=== PATIENT | female | born 1960 | race African-American/Black ===

== ENCOUNTER 2017-03-09 13:38 | Emergency (ER) | payer SELFPAY | END 2017-03-09 14:48 | disposition home or self-care (01) | LOC: ERS 13:38 | DX: J10.1 Influenza due to other identified influenza virus with other respiratory manifestations (principal); I10 Essential (primary) hypertension; M19.90 Unspecified osteoarthritis, unspecified site; F17.210 Nicotine dependence, cigarettes, uncomplicated | CPT/HCPCS: 99283 ==

== ENCOUNTER 2017-03-13 08:30 | Emergency (ER) | payer SELFPAY ==
[2017-03-13] MEDS ORDERED: Ondansetron ODT 4 MG TAB ONE (09:34)
== END 2017-03-13 09:45 | disposition home or self-care (01) ==
LOC: ERS 08:30
DX: J11.1 Influenza due to unidentified influenza virus with other respiratory manifestations (principal); I10 Essential (primary) hypertension; F17.210 Nicotine dependence, cigarettes, uncomplicated
CPT/HCPCS: 99284; Q0162

== ENCOUNTER 2018-02-15 00:45 | Emergency (ER) | payer SELFPAY ==
--- NOTE | 2018-02-15 08:37 | RAD ---
4 VIEWS RIGHT KNEE: Date: 02/15/18 COMPARISON: 12/25/15. HISTORY: Pain. FINDINGS: No joint effusion. There is stable mild to moderate degenerative change involving the medial compartment. No fracture or malalignment. IMPRESSION: Mild to moderate medial compartment degenerative change. POS: TAL
== END 2018-02-15 02:28 | disposition home or self-care (01) ==
LOC: ERS 00:45
DX: M25.561 Pain in right knee (principal); I10 Essential (primary) hypertension; J45.909 Unspecified asthma, uncomplicated; M19.90 Unspecified osteoarthritis, unspecified site; F17.210 Nicotine dependence, cigarettes, uncomplicated; Z71.6 Tobacco abuse counseling
CPT/HCPCS: 99406

== ENCOUNTER 2018-09-25 21:04 | Emergency (ER) | payer SELFPAY ==
[2018-09-25] MEDS ORDERED: Ibuprofen 800 MG TAB ONE (21:37)
[2018-09-25] MEDS ORDERED: Adacel (T-DAP) 0.5 ML SYRINGE ONE (21:37)
--- NOTE | 2018-09-25 21:43 | RAD ---
EXAM: XR Foot Lt 3 View STANDARD PROVIDED CLINICAL HISTORY: Pain FINDINGS: There is no evidence for fracture or other acute osseous abnormality. Alignment appears anatomic. Jenise nt spaces appear preserved. No evidence for radiopaque foreign body. IMPRESSION: No evidence for an acute osseous abnormality. If there is persistent clinical concern, conservative m anagement and follow-up imaging advised.
[2018-09-25] MEDS ORDERED: Bacitracin 1 PK ONE (22:09)
== END 2018-09-25 22:15 | disposition home or self-care (01) ==
LOC: ERS 21:04
DX: S91.342A Puncture wound with foreign body, left foot, initial encounter (principal); F17.210 Nicotine dependence, cigarettes, uncomplicated; I10 Essential (primary) hypertension; J45.909 Unspecified asthma, uncomplicated; Z79.51 Long term (current) use of inhaled steroids; W45.0XXA Nail entering through skin, initial encounter; Z79.899 Other long term (current) drug therapy
CPT/HCPCS: 90471; 90715

== ENCOUNTER 2021-02-27 16:02 | Inpatient (IN) | payer SELFPAY ==
[2021-02-27] MEDS ORDERED: cefTRIAXone\\ROCEPHIN 1 GM VIAL ONE (16:18)
[2021-02-27] MEDS ORDERED: methylPREDNISolone Sod Succ/PF 125 MG/2 ML VIAL ONE (16:18)
[2021-02-27 16:32] LABS: #Basophils 0.1 thou/uL (0.0-0.2); #Eosinphils 0.2 thou/uL (0.0-0.7); #Lymphocytes 1.9 thou/uL (1.20-3.40); #Monocytes 0.4 thou/uL (0.11-0.59); %Basophils 2.2 % (0.0-1.0); %Eosinophils 3.6 % (0.0-10.0); %Lymphocytes 41.7 % (21.0-51.0); %Monocytes 9.3 % (0.0-10.0); %Neutrophils 43.2 % (42.0-75.0); Hemoglobin 13.4 g/dL (12.0-16.0); Mean Corpuscular Hemoglobin 31.4 pg (27.0-31.0); Mean Corpuscular Volume 92.4 fL (78.0-98.0); Mean Platelet Volume 7.6 fL (7.4-10.4); Platelet Count 239 thou/uL (130-400); RBC Distribution Width 12.7 % (11.5-14.5); Red Blood Cell (RBC) Count 4.27 mill/uL (4.20-5.40); White Blood Cell (WBC) Count 4.6 thou/uL (4.8-10.8)
[2021-02-27 16:54] LABS: ALT (SGPT) 11 U/L (8-55); AST (SGOT) 16 U/L (5-34); Albumin 3.6 g/dL (3.5-5.0); Alkaline Phosphatase 66 U/L (40-110); Anion Gap 13 mmol/L (10-20); BUN (Urea Nitrogen) 9 mg/dL (9.8-20.1); Bilirubin, Total 0.3 mg/dL (0.2-1.2); Calc. Creatinine Clearance 0 mL/min (70-130); Calcium 8.6 mg/dL (7.8-10.44); Carbon Dioxide 22 mmol/L (22-29); Chloride 106 mmol/L (98-107); Globulin 3.4 g/dL (2.4-3.5); Glucose 108 mg/dL (70-105); Lipase 19 U/L (8-78); Potassium 3.5 mmol/L (3.5-5.1); Sodium 137 mmol/L (136-145)
[2021-02-27] MEDS ORDERED: Albuterol 200 PUFF (6.7GM INHALER) ONE (16:58)
[2021-02-27 18:05] LABS: Bacteria/HPF None Seen HPF (None Seen); Bilirubin Negative (Negative); Blood, Urine Trace (Negative); Calcium Oxalate Crystals 4+ HPF (None Seen); Clarity Clear (Clear); Glucose, Urine (Dipstick) Normal (Negative); Ketone, Urine Negative (Negative); Leukocyte Negative Leu/uL (Negative); Nitrite Negative (Negative); Protein, Urine (Dipstick) 10 mg/dL (Neg-Trace); RBC/HPF 0-3 HPF (0-3); Specific Gravity, Urine 1.026 (1.002-1.036); Squamous Epithelial 0-3 HPF (0-3); WBC/HPF 0-3 HPF (0-3); pH, Urine 5.5 (5.0-9.0)
[2021-02-27] MEDS ORDERED: Azithromycin 500 MG VIAL ONE (18:54)
[2021-02-27] MEDS ORDERED: Furosemide 40 MG/4 ML VIAL ONE (18:54)
[2021-02-27] MEDS ORDERED: Potassium Chloride 20 MEQ TAB PO SCH (20:00)
[2021-02-27] MEDS ORDERED: traMADol HCl 50 MG TAB PO PRN (20:44)
[2021-02-27] MEDS ORDERED: cefTRIAXone\\ROCEPHIN 2 GM in Sodium Chloride 0.9% 100 ML IVPB SCH (20:45)
[2021-02-27] MEDS ORDERED: Benzonatate 100 MG CAP PO PRN (20:45)
[2021-02-27] MEDS ORDERED: Ondansetron ODT 4 MG TAB PO PRN (20:46)
[2021-02-27] MEDS ORDERED: Ondansetron PF 4 MG/2 ML Vial IVP PRN (20:46)
[2021-02-27] MEDS ORDERED: Senokot S 8.6-50 MG TAB PO PRN (20:47)
[2021-02-27] MEDS ORDERED: guaiFENesin 200 MG TAB PO PRN (20:49)
[2021-02-27] MEDS ORDERED: Albuterol Sulfate 2.5 mg/3 ml Neb NEB PRN (20:50)
[2021-02-27] MEDS ORDERED: Dextrose 5% in Water 1,000 ML IV PRN (20:51)
[2021-02-27] MEDS ORDERED: HumaLOG 300 UNITS/3 ML VIAL SC PRN ×2 (20:51)
[2021-02-27] MEDS ORDERED: Dextrose 50% Abboject 50 ML SYRINGE SLOW IVP PRN (20:51)
[2021-02-27] MEDS ORDERED: Electrolyte Replacement Protocol 1 EACH FS SCH (21:45)
[2021-02-27] MEDS ORDERED: hydrALAZINE 20 MG/ML VIAL SLOW IVP PRN (21:49)
[2021-02-27] MEDS: Nicotine 14 MG PATCH TD SCH (22:36)
[2021-02-27] MEDS: cefTRIAXone\\ROCEPHIN 1 GM in Sodium Chloride 0.9% 100 ML IVPB SCH (22:37)
[2021-02-28] MEDS ORDERED: Potassium Chloride 20 MEQ in Premix Bag 1 BAG IVPB SCH (01:00)
[2021-02-28] MEDS ORDERED: Magnesium 2 GM/50 ML 2 GM in Premix Bag 1 BAG IVPB SCH (01:00)
[2021-02-28 03:30] LABS: Hemoglobin 13.3 g/dL (12.0-16.0); Mean Corpuscular HGB CONC 33.4 g/dL (32.0-36.0); Mean Corpuscular Hemoglobin 30.8 pg (27.0-31.0); Mean Corpuscular Volume 92.2 fL (78.0-98.0); Mean Platelet Volume 7.6 fL (7.4-10.4); Platelet Count 270 thou/uL (130-400); RBC Distribution Width 12.7 % (11.5-14.5); Red Blood Cell (RBC) Count 4.32 mill/uL (4.20-5.40); White Blood Cell (WBC) Count 4.5 thou/uL (4.8-10.8)
[2021-02-28 03:44] LABS: Hemoglobin A1c 5.5 % (4.0-6.0)
[2021-02-28 03:47] LABS: Anion Gap 11 mmol/L (10-20); BUN (Urea Nitrogen) 7 mg/dL (9.8-20.1); Calc. Creatinine Clearance 122 mL/min (70-130); Calcium 8.8 mg/dL (7.8-10.44); Carbon Dioxide 26 mmol/L (22-29); Chloride 106 mmol/L (98-107); Glucose 148 mg/dL (70-105); Potassium 3.7 mmol/L (3.5-5.1); Sodium 139 mmol/L (136-145)
[2021-02-28 04:33] LABS: Band 5 % (5-11); Lymphocytes 15 % (21-51); MDiff Complete? YES; Monocytes 3 % (0-10); Neutrophil 77 % (42-75)
[2021-02-28] MEDS ORDERED: methylPREDNISolone Sod Succ 40 MG VIAL IVP SCH (06:00)
[2021-02-28] MEDS: Furosemide 40 MG/4 ML VIAL SLOW IVP SCH ×2 (06:25→15:52)
[2021-02-28] MEDS ORDERED: predniSONE 20 MG TAB PO SCH (08:00)
[2021-02-28] MEDS ORDERED: metFORMIN 500 MG TAB PO SCH (08:00)
[2021-02-28] MEDS: methylPREDNISolone Sod Succ 40 MG VIAL IVP SCH (09:16)
[2021-02-28] MEDS: Enoxaparin Sodium 40 MG/0.4 ML SYRINGE SC SCH (09:16)
[2021-02-28] MEDS: Metoprolol Tartrate 25 MG TAB PO SCH ×2 (09:16→20:12)
[2021-02-28] MEDS: Azithromycin 250 MG TAB PO SCH (09:16)
[2021-02-28] MEDS: metFORMIN 500 MG TAB PO SCH (15:52)
[2021-02-28] MEDS: Nicotine 14 MG PATCH TD SCH (20:12)
[2021-02-28] MEDS: cefTRIAXone\\ROCEPHIN 1 GM in Sodium Chloride 0.9% 100 ML IVPB SCH (20:12)
[2021-03-01] MEDS: Furosemide 40 MG/4 ML VIAL SLOW IVP SCH ×2 (05:18→14:46)
[2021-03-01] MEDS ORDERED: Lisinopril/Hydrochlorothiazide 10 mg/12.5 mg Tablet PO SCH (09:00)
[2021-03-01 09:09] VITALS: BMI 34.5
[2021-03-01] MEDS: metFORMIN 500 MG TAB PO SCH (09:31)
[2021-03-01] MEDS: Azithromycin 250 MG TAB PO SCH (09:32)
[2021-03-01] MEDS: Enoxaparin Sodium 40 MG/0.4 ML SYRINGE SC SCH (09:32)
[2021-03-01] MEDS: Metoprolol Tartrate 25 MG TAB PO SCH (09:32)
[2021-03-01] MEDS: methylPREDNISolone Sod Succ 40 MG VIAL IVP SCH (09:33)
[2021-03-01 12:11] VITALS: BP 130/75; TEMP 97.6
== END 2021-03-01 15:34 | disposition home or self-care (01) | DRG 871 ==
LOC: ERS 16:02 → 2NO 18:50 → OBSVTOIN 02-28 16:49
PROVIDERS: ADMIT Internal Medicine; ATTEND Internal Medicine
DX: A41.9 Sepsis, unspecified organism (principal); J96.01 Acute respiratory failure with hypoxia; J18.9 Pneumonia, unspecified organism; I50.33 Acute on chronic diastolic (congestive) heart failure; R04.2 Hemoptysis; J43.9 Emphysema, unspecified; F17.210 Nicotine dependence, cigarettes, uncomplicated; E66.9 Obesity, unspecified; E11.9 Type 2 diabetes mellitus without complications; I11.0 Hypertensive heart disease with heart failure; I16.0 Hypertensive urgency; J20.9 Acute bronchitis, unspecified; M19.90 Unspecified osteoarthritis, unspecified site; I08.1 Rheumatic disorders of both mitral and tricuspid valves; Z68.34 Body mass index [BMI] 34.0-34.9, adult; Z88.6 Allergy status to analgesic agent; Z88.8 Allergy status to other drugs, medicaments and biological substances; Z79.899 Other long term (current) drug therapy; Z79.84 Long term (current) use of oral hypoglycemic drugs; Z80.0 Family history of malignant neoplasm of digestive organs; Z82.49 Family history of ischemic heart disease and other diseases of the circulatory system; Z88.0 Allergy status to penicillin; Z71.6 Tobacco abuse counseling
CPT/HCPCS: 36415; 36416; 71045; 71250; 80048; 80053; 81003; 81015; 83036; 83605; 83690; 83735; 83880; 84443; 85025; 87040; 87086; 93005; 93306; 94640; 94664; 96365; 96366; 96367; 96368; 96372; 96375; 96376; G0378; J0456; J0696; J1650; J1940; J2920; J2930; J3475; J3490; J7620

== ENCOUNTER 2022-11-07 02:58 | Observation (INO) | payer SELFPAY ==
[2022-11-07] MEDS ORDERED: Oxymetazoline HCl 0.05% (30 ML BOT) ONE (03:12)
[2022-11-07] MEDS ORDERED: Tranexamic Acid 1,000 MG/10 ML VIAL ONE (04:32)
[2022-11-07 05:01] LABS: Hematocrit 41.3 % (36.0-47.0); Hemoglobin 13.3 g/dL (12.0-16.0); Mean Corpuscular HGB CONC 32.2 g/dL (32.0-36.0); Mean Corpuscular Volume 90.2 fl (78.0-98.0); Red Blood Cell (RBC) Count 4.58 mill/uL (4.20-5.40); White Blood Cell (WBC) Count 7.5 10x3/uL (4.8-10.8)
[2022-11-07 05:02] LABS: #Eosinphils 0.2 thou/uL (0.0-0.7); #Monocytes 0.5 thou/uL (0.11-0.59); #Neutrophils 4.1 thou/uL (1.40-6.50); %Basophils 0.4 % (0.0-1.0); %Eosinophils 3.1 % (0.0-10.0); %Lymphocytes 35.7 % (21.0-51.0); %Monocytes 6.1 % (0.0-10.0); %Neutrophils 54.4 % (42.0-75.0); Mean Platelet Volume 10.3 fL (7.4-10.4); Platelet Count 325 10x3/uL (130-400); RBC Distribution Width 13.6 % (11.5-14.5)
[2022-11-07 05:16] LABS: INR-International Normal Ratio 0.9; Prothrombin Time 12.3 sec (12.0-14.7)
[2022-11-07 05:28] LABS: ALT (SGPT) 8 U/L (8-55); AST (SGOT) 13 U/L (5-34); Albumin 3.8 g/dL (3.4-4.8); Alkaline Phosphatase 75 U/L (40-110); Anion Gap 10 mmol/L (10-20); BUN (Urea Nitrogen) 10 mg/dL (9.8-20.1); Bilirubin, Total 0.3 mg/dL (0.2-1.2); Calc. Creatinine Clearance 0 mL/min (70-130); Calcium 9.1 mg/dL (7.8-10.44); Carbon Dioxide 27 mmol/L (23-31); Chloride 105 mmol/L (98-107); Estimated GFR 98; Glucose 106 mg/dL (80-115); Potassium 3.1 mmol/L (3.5-5.1); Protein, Total 6.8 g/dL (5.8-8.1); Sodium 139 mmol/L (136-145)
[2022-11-07] MEDS ORDERED: Potassium Chloride 20 MEQ/100 ML PREMIX BAG ONE (05:49)
[2022-11-07] MEDS ORDERED: Potassium Chloride 20 MEQ TAB ONE (06:17)
[2022-11-07] MEDS ORDERED: Electrolyte Replacement Protocol 1 EACH FS SCH (06:45)
[2022-11-07] MEDS ORDERED: Potassium Chloride 20 MEQ TAB PO SCH (07:15)
[2022-11-07 07:42] VITALS: BMI 34.3
[2022-11-07] MEDS ORDERED: Ondansetron PF 4 MG/2 ML Vial IVP PRN (07:43)
[2022-11-07] MEDS ORDERED: Ondansetron ODT 4 MG TAB PO PRN (07:43)
[2022-11-07] MEDS ORDERED: Sodium Chloride 0.9% 1,000 ML IV SCH (07:45)
[2022-11-07 07:59] LABS: Magnesium 1.9 mg/dL (1.6-2.6)
[2022-11-07] MEDS ORDERED: Magnesium 2 GM/50 ML(in water) 2 GM in Premix Bag 1 BAG IVPB SCH (09:00)
[2022-11-07] MEDS ORDERED: Dextrose 50% Abboject 50 ML SYRINGE SLOW IVP PRN (09:48)
[2022-11-07] MEDS ORDERED: Glucagon 1 MG/ML KIT IM PRN (09:48)
[2022-11-07] MEDS ORDERED: HumaLOG 300 UNITS/3 ML VIAL SC PRN ×2 (09:48)
[2022-11-07] MEDS ORDERED: Dextrose 5% in Water 1,000 ML IV PRN (09:48)
[2022-11-07] MEDS: Nicotine 14 MG PATCH TD SCH (10:33)
[2022-11-07] MEDS ORDERED: Oxymetazoline HCl 0.05% (30 ML BOT) NS PRN (14:08)
[2022-11-07] MEDS ORDERED: diphenhydrAMINE 25 MG CAP PO PRN (14:09)
[2022-11-07] MEDS: Acetaminophen 325 MG TAB PO PRN ×2 (15:19→20:24)
[2022-11-07] MEDS ORDERED: Ipratropium Bromide 2.5 ml Neb NEB PRN (17:35)
[2022-11-07] MEDS ORDERED: Albuterol 200 PUFF (6.7GM INHALER) INH PRN (17:44)
[2022-11-07] MEDS: Cefdinir 300 MG CAP PO SCH (20:24)
[2022-11-07] MEDS: Metoprolol Tartrate 25 MG TAB PO SCH (20:24)
[2022-11-08 06:54] VITALS: TEMP 98.2
[2022-11-08 07:52] VITALS: BP 163/90
[2022-11-08 07:58] LABS: #Eosinphils 0.2 thou/uL (0.0-0.7); #Monocytes 0.5 thou/uL (0.11-0.59); %Basophils 0.3 % (0.0-1.0); %Eosinophils 2.4 % (0.0-10.0); %Lymphocytes 33.9 % (21.0-51.0); %Monocytes 6.9 % (0.0-10.0); %Neutrophils 56.2 % (42.0-75.0); Hematocrit 36.5 % (36.0-47.0); Hemoglobin 11.9 g/dL (12.0-16.0); Mean Corpuscular HGB CONC 32.6 g/dL (32.0-36.0); Mean Corpuscular Hemoglobin 29.2 pg (27.0-31.0); Mean Corpuscular Volume 89.7 fl (78.0-98.0); Mean Platelet Volume 10.6 fL (7.4-10.4); Platelet Count 280 10x3/uL (130-400); RBC Distribution Width 13.7 % (11.5-14.5); Red Blood Cell (RBC) Count 4.07 mill/uL (4.20-5.40); White Blood Cell (WBC) Count 7.1 10x3/uL (4.8-10.8)
[2022-11-08] MEDS ORDERED: metFORMIN 500 MG TAB PO SCH (08:00)
[2022-11-08] MEDS: Cefdinir 300 MG CAP PO SCH (08:21)
[2022-11-08] MEDS: Metoprolol Tartrate 25 MG TAB PO SCH (08:21)
[2022-11-08 08:23] LABS: Anion Gap 9 mmol/L (10-20); BUN (Urea Nitrogen) 10 mg/dL (9.8-20.1); Calc. Creatinine Clearance 112 mL/min (70-130); Calcium 8.7 mg/dL (7.8-10.44); Carbon Dioxide 27 mmol/L (23-31); Chloride 107 mmol/L (98-107); Estimated GFR 98; Glucose 99 mg/dL (80-115); Potassium 4.1 mmol/L (3.5-5.1); Sodium 139 mmol/L (136-145)
[2022-11-08] MEDS: Nicotine 14 MG PATCH TD SCH (08:23)
[2022-11-08] MEDS ORDERED: Lisinopril/Hydrochlorothiazide 10 mg/12.5 mg Tablet PO SCH (09:00)
== END 2022-11-08 11:49 | disposition home or self-care (01) ==
LOC: ERS 02:58 → ERHOLD 05:39 → INTOOBSV 05:39 → T4-B 07:28
PROVIDERS: ADMIT Student in an Organized Health Care Education/Training Program; ATTEND Internal Medicine
DX: R04.0 Epistaxis (principal); E87.6 Hypokalemia; J45.909 Unspecified asthma, uncomplicated; I10 Essential (primary) hypertension; E11.69 Type 2 diabetes mellitus with other specified complication; E66.01 Morbid (severe) obesity due to excess calories; Z68.34 Body mass index [BMI] 34.0-34.9, adult; F17.210 Nicotine dependence, cigarettes, uncomplicated; Z88.0 Allergy status to penicillin; Z88.8 Allergy status to other drugs, medicaments and biological substances; Z79.84 Long term (current) use of oral hypoglycemic drugs; Z79.899 Other long term (current) drug therapy
CPT/HCPCS: 30903; 36415; 36416; 80048; 80053; 83735; 85025; 85610; 85730; 96365; 96375; G0378; J3475; J3480; J7050

== ENCOUNTER 2024-02-20 09:27 | Inpatient (IN) | payer OTHER, SELFPAY ==
[2024-02-20 09:57] LABS: #Basophils Less than 0.03 10x3/uL (0.0-0.2); %Basophils 0.2 % (0.0-1.0); %Eosinophils 1.5 % (0.0-10.0); %Monocytes 5.5 % (0.0-10.0); %Neutrophils 56.6 % (42.0-75.0); Hematocrit 35.2 % (36.0-47.0); Hemoglobin 11.4 g/dL (12.0-16.0); Mean Corpuscular HGB CONC 32.4 g/dL (32.0-36.0); Mean Corpuscular Hemoglobin 29.2 pg (27.0-31.0); Mean Corpuscular Volume 90.3 fL (78.0-98.0); Mean Platelet Volume 9.9 fL (7.4-10.4); Platelet Count 278 10x3/uL (130-400); RBC Distribution Width 13.9 % (11.5-14.5)
[2024-02-20] MEDS ORDERED: Morphine 4 MG/ML VIAL ONE (10:14)
[2024-02-20] MEDS ORDERED: Nitroglycerin 2% Ointment 1 INCH/1 GM Packet ONE (10:14)
[2024-02-20] MEDS ORDERED: Ondansetron PF 4 MG/2 ML Vial ONE (10:14)
[2024-02-20 10:15] LABS: ALT (SGPT) 35 U/L (8-55); AST (SGOT) 27 U/L (5-34); Albumin 3.2 g/dL (3.4-4.8); Alkaline Phosphatase 72 U/L (40-110); Anion Gap 13 mmol/L (10-20); BUN (Urea Nitrogen) 8 mg/dL (9.8-20.1); Bilirubin, Total 0.5 mg/dL (0.2-1.2); Calc. Creatinine Clearance 0 mL/min (70-130); Calcium 8.5 mg/dL (7.8-10.44); Carbon Dioxide 21 mmol/L (23-31); Chloride 110 mmol/L (98-107); Estimated GFR 98; Glucose 99 mg/dL (80-115); Lipase 8 U/L (8-78); Potassium 3.9 mmol/L (3.5-5.1); Protein, Total 6.2 g/dL (5.8-8.1); Sodium 140 mmol/L (136-145)
[2024-02-20] MEDS ORDERED: methylPREDNISolone Sod Succ/PF 125 MG/2 ML VIAL ONE (10:15)
[2024-02-20] MEDS ORDERED: Aspirin Chewable 81 MG TAB ONE (10:15)
[2024-02-20 10:17] LABS: INR-International Normal Ratio 1.1; Prothrombin Time 13.7 sec (12.0-14.7)
[2024-02-20 10:18] LABS: PTT 45.5 sec (22.9-36.1)
[2024-02-20 10:20] LABS: Troponin I 0.019 ng/mL (< 0.028)
[2024-02-20] MEDS ORDERED: Furosemide 40 MG (4 mL) VIAL ONE (10:34)
[2024-02-20] MEDS ORDERED: Ipratropium/Albuterol 3 ML NEB ONE ×2 (11:00→13:22)
[2024-02-20 11:59] LABS: Bacteria/HPF None Seen HPF (None Seen); Bilirubin Negative (Negative); Blood, Urine Negative (Negative); CAUTI Indications for Culture Dysuria,urgency,freq; Clarity Clear (Clear); Glucose, Urine (Dipstick) Normal (Negative); Ketone, Urine Negative (Negative); Leukocyte Negative Leu/uL (Negative); Nitrite Negative (Negative); Protein, Urine (Dipstick) Negative (Neg-Trace); RBC/HPF 0-3 HPF (0-3); Specific Gravity, Urine 1.008 (1.002-1.036); Squamous Epithelial None Seen HPF (0-3); Urobilinogen Normal mg/dL (Less than 2); WBC/HPF 0-3 HPF (0-3)
[2024-02-20 12:04] LABS: Urine Culture Reflex No No
[2024-02-20] MEDS ORDERED: Ondansetron PF 4 MG/2 ML Vial IVP PRN (12:04)
[2024-02-20] MEDS ORDERED: Albuterol 2.5 MG (3 mL) NEB NEB PRN (12:04)
[2024-02-20] MEDS ORDERED: Famotidine 20 MG TAB PO PRN (12:04)
[2024-02-20] MEDS ORDERED: Ondansetron ODT 4 MG TAB PO PRN (12:04)
[2024-02-20 12:45] LABS: Troponin I 0.022 ng/mL (< 0.028)
[2024-02-20] MEDS ORDERED: LevoFLOXacin 500 mg/D5W 500 MG in Premix 1 BAG IVPB SCH (13:00)
[2024-02-20] MEDS: Ipratropium/Albuterol 3 ML NEB NEB SCH (13:23)
[2024-02-20] MEDS: Furosemide 40 MG (4 mL) VIAL SLOW IVP SCH (16:47)
[2024-02-20] MEDS: Metoprolol Tartrate 25 MG TAB PO SCH ×2 (16:47→22:03)
[2024-02-20 18:51] LABS: Troponin I Less than 0.010 ng/mL (< 0.028)
[2024-02-20] MEDS: Ketorolac Tromethamine 30 MG (1 mL) VIAL IVP SCH (22:31)
[2024-02-20 23:24] VITALS: BMI 37.9
[2024-02-21 05:37] LABS: #Basophils Less than 0.03 10x3/uL (0.0-0.2); #Eosinophils Less than 0.03 10x3/uL (0.0-0.7); %Lymphocytes 20.6 % (21.0-51.0); %Monocytes 6.7 % (0.0-10.0); %Neutrophils 72.3 % (42.0-75.0); Hematocrit 36.2 % (36.0-47.0); Hemoglobin 11.6 g/dL (12.0-16.0); Mean Corpuscular Hemoglobin 28.8 pg (27.0-31.0); Mean Corpuscular Volume 89.8 fL (78.0-98.0); Mean Platelet Volume 10.3 fL (7.4-10.4); Platelet Count 305 10x3/uL (130-400); RBC Distribution Width 13.9 % (11.5-14.5); Red Blood Cell (RBC) Count 4.03 mill/uL (4.20-5.40)
[2024-02-21 05:53] LABS: Anion Gap 13 mmol/L (10-20); BUN (Urea Nitrogen) 16 mg/dL (9.8-20.1); Calc. Creatinine Clearance 107 mL/min (70-130); Calcium 8.9 mg/dL (7.8-10.44); Carbon Dioxide 24 mmol/L (23-31); Chloride 107 mmol/L (98-107); Estimated GFR 87; Glucose 111 mg/dL (80-115); Potassium 4.1 mmol/L (3.5-5.1); Sodium 140 mmol/L (136-145)
[2024-02-21] MEDS: Hydrochlorothiazide 25 MG TAB PO SCH (08:40)
[2024-02-21] MEDS: predniSONE 20 MG TAB PO SCH (08:41)
[2024-02-21] MEDS: Aspirin 81 mg Enteric Coated Tablet PO SCH (08:41)
[2024-02-21] MEDS: Lisinopril 10 MG TAB PO SCH (08:41)
[2024-02-21] MEDS: Metolazone 5 MG TAB PO SCH (12:21)
[2024-02-22 04:19] LABS: #Basophils Less than 0.03 10x3/uL (0.0-0.2); #Eosinophils Less than 0.03 10x3/uL (0.0-0.7); %Basophils 0.1 % (0.0-1.0); %Eosinophils 0.2 % (0.0-10.0); %Lymphocytes 30.5 % (21.0-51.0); %Neutrophils 62.8 % (42.0-75.0); Hemoglobin 12.6 g/dL (12.0-16.0); Mean Corpuscular HGB CONC 33.2 g/dL (32.0-36.0); Mean Corpuscular Hemoglobin 29.2 pg (27.0-31.0); Mean Platelet Volume 10.1 fL (7.4-10.4); Platelet Count 334 10x3/uL (130-400); RBC Distribution Width 13.8 % (11.5-14.5); Red Blood Cell (RBC) Count 4.32 mill/uL (4.20-5.40)
[2024-02-22 04:41] LABS: Anion Gap 11 mmol/L (10-20); BUN (Urea Nitrogen) 20 mg/dL (9.8-20.1); Calc. Creatinine Clearance 120 mL/min (70-130); Calcium 9.4 mg/dL (7.8-10.44); Carbon Dioxide 31 mmol/L (23-31); Cardiac Risk 3.9 (Less than 4.5); Chloride 99 mmol/L (98-107); Cholesterol 168 mg/dl (< 200 Desired); Estimated GFR 97; Glucose 104 mg/dL (80-115); HDL Cholesterol 43 mg/dL (>60 Neg Risk); LDL Cholesterol, Calculated 111 mg/dL; Potassium 3.5 mmol/L (3.5-5.1); Sodium 137 mmol/L (136-145); Triglycerides 68 mg/dL (Less than 150)
[2024-02-22] MEDS ORDERED: Communication Order-Pharmacy FS SCH (06:00)
[2024-02-22] MEDS ORDERED: Midazolam HCl 2 mg/2 ml Vial ONE (06:40)
[2024-02-22] MEDS ORDERED: Heparin 10,000 UNITS/ 10 ML VIAL ONE (06:40)
[2024-02-22] MEDS ORDERED: Verapamil 5 MG/2 ML VIAL ONE (06:40)
[2024-02-22] MEDS ORDERED: Nitroglycerin 50 MG/250 ML BOT 250 ML ONE (06:41)
[2024-02-22] MEDS ORDERED: fentaNYL 50 mcg/mL 1 mL Vial ONE (08:31)
[2024-02-22] MEDS ORDERED: Metoprolol Tartrate 5 MG (5 mL) VIAL ONE (08:56)
[2024-02-22] MEDS ORDERED: Sodium Chloride 0.9% 200 ML IV PRN (09:35)
[2024-02-22] MEDS ORDERED: Nitroglycerin 0.4 MG TAB (25 Tab Bottle) SL PRN (09:35)
[2024-02-22] MEDS ORDERED: Acetaminophen/Codeine 30-300mg Tablet PO PRN ×2 (09:35)
[2024-02-22] MEDS ORDERED: Iopamidol 370 76% 100 ML VIAL ONE (10:24)
[2024-02-22] MEDS: Atorvastatin Calcium 40 MG TAB PO SCH ×2 (11:19→21:28)
[2024-02-22] MEDS: Dapagliflozin Propanediol 10 MG TAB PO SCH (11:19)
[2024-02-22] MEDS: Furosemide 20 MG TAB PO SCH (16:02)
[2024-02-22] MEDS: Sacubitril 24MG/Valsartan 26 MG TAB PO SCH (21:29)
[2024-02-23 06:37] LABS: Anion Gap 14 mmol/L (10-20); BUN (Urea Nitrogen) 20 mg/dL (9.8-20.1); Calc. Creatinine Clearance 100 mL/min (70-130); Calcium 8.9 mg/dL (7.8-10.44); Carbon Dioxide 30 mmol/L (23-31); Chloride 96 mmol/L (98-107); Estimated GFR 84; Glucose 100 mg/dL (80-115); Potassium 3.3 mmol/L (3.5-5.1); Sodium 137 mmol/L (136-145)
[2024-02-23 06:39] LABS: #Basophils Less than 0.03 10x3/uL (0.0-0.2); %Basophils 0.2 % (0.0-1.0); %Eosinophils 0.5 % (0.0-10.0); %Lymphocytes 46.2 % (21.0-51.0); %Monocytes 3.1 % (0.0-10.0); %Neutrophils 49.6 % (42.0-75.0); Hematocrit 51.1 % (36.0-47.0); Hemoglobin 16.5 g/dL (12.0-16.0); Mean Corpuscular HGB CONC 32.3 g/dL (32.0-36.0); Mean Corpuscular Hemoglobin 28.7 pg (27.0-31.0); Mean Corpuscular Volume 88.9 fL (78.0-98.0); Mean Platelet Volume 9.8 fL (7.4-10.4); Platelet Count 413 10x3/uL (130-400); RBC Distribution Width 13.7 % (11.5-14.5); Red Blood Cell (RBC) Count 5.75 mill/uL (4.20-5.40)
[2024-02-23] MEDS: Dapagliflozin Propanediol 10 MG TAB PO SCH (09:52)
[2024-02-23] MEDS: predniSONE 5 MG TAB PO SCH (09:52)
[2024-02-24 06:03] LABS: #Basophils 0.03 10x3/uL (0.0-0.2); %Basophils 0.3 % (0.0-1.0); %Eosinophils 0.8 % (0.0-10.0); %Lymphocytes 52.2 % (21.0-51.0); %Monocytes 7.7 % (0.0-10.0); %Neutrophils 38.7 % (42.0-75.0); Hematocrit 50.5 % (36.0-47.0); Hemoglobin 16.7 g/dL (12.0-16.0); Mean Corpuscular HGB CONC 33.1 g/dL (32.0-36.0); Mean Corpuscular Hemoglobin 28.6 pg (27.0-31.0); Mean Corpuscular Volume 86.5 fL (78.0-98.0); Mean Platelet Volume 10.4 fL (7.4-10.4); Platelet Count 402 10x3/uL (130-400); RBC Distribution Width 13.6 % (11.5-14.5); Red Blood Cell (RBC) Count 5.84 mill/uL (4.20-5.40)
[2024-02-24 06:15] LABS: Anion Gap 14 mmol/L (10-20); BUN (Urea Nitrogen) 27 mg/dL (9.8-20.1); Calc. Creatinine Clearance 86 mL/min (70-130); Carbon Dioxide 29 mmol/L (23-31); Chloride 98 mmol/L (98-107); Potassium 3.5 mmol/L (3.5-5.1); Sodium 137 mmol/L (136-145)
[2024-02-24 06:16] LABS: ALT (SGPT) 38 U/L (8-55); AST (SGOT) 21 U/L (5-34); Albumin 3.4 g/dL (3.4-4.8); Alkaline Phosphatase 75 U/L (40-110); Bilirubin, Total 0.5 mg/dL (0.2-1.2); Calcium 9.1 mg/dL (7.8-10.44); Estimated GFR 70; Globulin 3.8 g/dL (2.4-3.5); Glucose 95 mg/dL (80-115); Magnesium 2.3 mg/dL (1.6-2.6); Protein, Total 7.2 g/dL (5.8-8.1)
[2024-02-24 09:15] VITALS: TEMP 97.6
[2024-02-24 13:02] VITALS: BP 114/77
== END 2024-02-24 14:00 | disposition home or self-care (01) | DRG 286 ==
LOC: ERS 09:27 → ERHOLD 11:41 → 2NO 21:50
PROVIDERS: ADMIT Family Medicine; ATTEND Internal Medicine
PROC: 4A023N7 Measurement of Cardiac Sampling and Pressure, Left Heart, Percutaneous Approach (ICD-10-PCS; principal; 2024-02-22)
PROC: B2111ZZ Fluoroscopy of Multiple Coronary Arteries using Low Osmolar Contrast (ICD-10-PCS; 2024-02-22)
PROC: B2151ZZ Fluoroscopy of Left Heart using Low Osmolar Contrast (ICD-10-PCS; 2024-02-22)
DX: I11.0 Hypertensive heart disease with heart failure (principal); I50.23 Acute on chronic systolic (congestive) heart failure; J44.1 Chronic obstructive pulmonary disease with (acute) exacerbation; E11.9 Type 2 diabetes mellitus without complications; E66.01 Morbid (severe) obesity due to excess calories; F17.210 Nicotine dependence, cigarettes, uncomplicated; I25.10 Atherosclerotic heart disease of native coronary artery without angina pectoris; E78.00 Pure hypercholesterolemia, unspecified; I42.8 Other cardiomyopathies; I34.0 Nonrheumatic mitral (valve) insufficiency; I07.1 Rheumatic tricuspid insufficiency; I95.9 Hypotension, unspecified; Z88.0 Allergy status to penicillin; Z88.5 Allergy status to narcotic agent; Z98.891 History of uterine scar from previous surgery; Z88.8 Allergy status to other drugs, medicaments and biological substances; Z71.6 Tobacco abuse counseling; Z68.35 Body mass index [BMI] 35.0-35.9, adult
CPT/HCPCS: 36415; 71045; 80048; 80053; 80061; 81001; 83690; 83735; 83880; 84443; 84484; 85025; 85610; 85730; 87070; 87205; 87428; 93005; 93306; 93458; 93798; 96374; 96375; 99152; 99153; C1769; C1887; C1894; J1644; J1885; J1940; J2250; J2272; J2405; J2919; J3010; J7512; J7620; Q9967

== ENCOUNTER 2024-12-10 10:27 | Emergency (ER) | payer OTHER ==
[2024-12-10] MEDS ORDERED: Iopamidol-370 76% 500 ML MDV (1 ML CHARGE) ONE (13:03)
[2024-12-10 13:42] LABS: #Basophils Less than 0.03 10x3/uL (0.0-0.2); #Eosinophils 0.14 10x3/uL (0.0-0.7); #Monocytes 0.47 10x3/uL (0.11-0.59); #Neutrophils 3.56 10x3/uL (1.40-6.50); %Basophils 0.1 % (0.0-1.0); %Eosinophils 2.0 % (0.0-10.0); %Lymphocytes 39.0 % (21.0-51.0); %Monocytes 6.8 % (0.0-10.0); %Neutrophils 51.8 % (42.0-75.0); Hematocrit 39.1 % (36.0-47.0); Hemoglobin 12.3 g/dL (12.0-16.0); Mean Corpuscular Hemoglobin 28.5 pg (27.0-31.0); Mean Corpuscular Volume 90.5 fL (78.0-98.0); Platelet Count 312 10x3/uL (130-400); Red Blood Cell (RBC) Count 4.32 mill/uL (4.20-5.40); White Blood Cell (WBC) Count 6.89 10x3/uL (4.8-10.8)
[2024-12-10 14:04] LABS: ALT (SGPT) 28 U/L (Less than 34); AST (SGOT) 26 U/L (11-34); Albumin 3.8 g/dL (3.1-4.5); Alkaline Phosphatase 80 U/L (40-110); Anion Gap 12 mmol/L (10-20); BUN (Urea Nitrogen) 8 mg/dL (9.8-20.1); Bilirubin, Total 0.6 mg/dL (0.3-1.2); Calc. Creatinine Clearance 0 mL/min (70-130); Calcium 9.0 mg/dL (7.8-10.44); Carbon Dioxide 24 mmol/L (23-31); Chloride 107 mmol/L (98-107); Globulin 3.4 g/dL (2.4-3.5); Glucose 99 mg/dL (80-115); Potassium 3.0 mmol/L (3.5-5.1); Sodium 140 mmol/L (136-145)
[2024-12-10] MEDS ORDERED: Furosemide 40 MG (4 mL) VIAL ONE (15:57)
[2024-12-10] MEDS ORDERED: Electrolyte Replacement Protocol 1 EACH FS SCH (19:17)
[2024-12-10 19:28] LABS: Magnesium 2.0 mg/dL (1.6-2.6)
== END 2024-12-10 20:17 | disposition home or self-care (01) ==
LOC: ERS 10:27
DX: R06.02 Shortness of breath (principal); I11.0 Hypertensive heart disease with heart failure; I50.9 Heart failure, unspecified; R79.89 Other specified abnormal findings of blood chemistry; E11.9 Type 2 diabetes mellitus without complications; K44.9 Diaphragmatic hernia without obstruction or gangrene; Z79.82 Long term (current) use of aspirin; Z79.899 Other long term (current) drug therapy; Z79.51 Long term (current) use of inhaled steroids; Z87.891 Personal history of nicotine dependence
CPT/HCPCS: 71045; 71275; 80053; 83735; 83880; 84484; 85025; 85379; 93005; 96374; 96375; J1940; J2919

== ENCOUNTER 2025-02-13 14:38 | Emergency (ER) | payer OTHER, SELFPAY ==
[2025-02-13 15:02] LABS: #Basophils Less than 0.03 10x3/uL (0.0-0.2); #Eosinophils 0.05 10x3/uL (0.0-0.7); #Monocytes 0.26 10x3/uL (0.11-0.59); #Neutrophils 5.87 10x3/uL (1.40-6.50); %Basophils 0.1 % (0.0-1.0); %Eosinophils 0.7 % (0.0-10.0); %Lymphocytes 9.5 % (21.0-51.0); %Monocytes 3.8 % (0.0-10.0); %Neutrophils 85.8 % (42.0-75.0); Hematocrit 37.1 % (36.0-47.0); Hemoglobin 11.5 g/dL (12.0-16.0); Mean Corpuscular Hemoglobin 28.0 pg (27.0-31.0); Mean Corpuscular Volume 90.3 fL (78.0-98.0); Platelet Count 284 10x3/uL (130-400); Red Blood Cell (RBC) Count 4.11 mill/uL (4.20-5.40); White Blood Cell (WBC) Count 6.85 10x3/uL (4.8-10.8)
[2025-02-13] MEDS ORDERED: Acetaminophen 500 MG TAB ONE (15:11)
[2025-02-13 15:18] LABS: ALT (SGPT) 7 U/L (Less than 34); AST (SGOT) 15 U/L (11-34); Albumin 3.7 g/dL (3.1-4.5); Alkaline Phosphatase 69 U/L (40-110); Anion Gap 13 mmol/L (10-20); BUN (Urea Nitrogen) 10 mg/dL (9.8-20.1); Bilirubin, Total 0.2 mg/dL (0.3-1.2); Calc. Creatinine Clearance 0 mL/min (70-130); Calcium 8.5 mg/dL (7.8-10.44); Carbon Dioxide 24 mmol/L (23-31); Chloride 105 mmol/L (98-107); Globulin 3.2 g/dL (2.4-3.5); Glucose 128 mg/dL (80-115); Potassium 3.7 mmol/L (3.5-5.1); Sodium 138 mmol/L (136-145)
[2025-02-13 17:02] LABS: Glucose, Urine (Dipstick) Negative (Negative); Leukocyte Negative (Negative); Protein, Urine (Dipstick) Negative (Neg-Trace); Specific Gravity, Urine 1.015 (1.005-1.030)
[2025-02-13 17:06] LABS: Bacteria/HPF None Seen HPF (None Seen); CAUTI Indications for Culture Fever or rigors; RBC/HPF 0-3 HPF (0-3); WBC/HPF 0-3 HPF (0-3)
[2025-02-13 17:07] LABS: Urine Culture Reflex No No
== END 2025-02-13 18:23 | disposition home or self-care (01) ==
LOC: ERS 14:38
DX: J18.9 Pneumonia, unspecified organism (principal); E11.9 Type 2 diabetes mellitus without complications; J44.9 Chronic obstructive pulmonary disease, unspecified; I11.0 Hypertensive heart disease with heart failure; I50.9 Heart failure, unspecified; Z87.891 Personal history of nicotine dependence
CPT/HCPCS: 51701; 71045; 71275; 80053; 81001; 83605; 85025; 87040; 87086; 87428; 93005; 96374